=== PATIENT | female | born 1995 | race African-American/Black ===

== ENCOUNTER 2018-01-28 15:19 | Emergency (ER) | payer SELFPAY ==
[~2018-01-28] VITALS: Ht 172.7 cm; Wt 51.0 kg
[2018-01-28] MEDS ORDERED: LACTATED RINGERS 500 ML IV SCH (16:15)
[2018-01-28] MEDS ORDERED: BACITRACIN ZINC OINT UDPKT TOP ONE (16:30)
[2018-01-28 16:44] LABS: BASOPHILS % 0.2 % (0.0-2.0); HEMATOCRIT. 34.9 % (36.0-48.0); HEMOGLOBIN. 11.8 g/dL (12.0-16.0); LYMPHOCYTES % 23.6 % (20.0-50.0); MEAN CORPUSCULAR HEMOGLOBIN 32.2 pg (28.0-32.0); MEAN CORPUSCULAR VOLUME 95.6 fL (81.0-99.0); MEAN PLATELET VOLUME 8.6 fl (7.4-10.4); MONOCYTES % 7.5 % (2.0-8.0); NEUTROPHILS % 67.7 % (40.0-76.0); PLATELET 159 x1000/uL (130-400); RED BLOOD CELL COUNT 3.66 mill/uL (4.2-5.4); RED CELL DISTRIBUTION WIDTH 12.4 % (11.6-14.6)
[2018-01-28 16:46] LABS: CHLORIDE 110 mEq/L (98-107)
[2018-01-28 16:48] LABS: INR 1.1
[2018-01-28 17:20] LABS: CLARITY URINE CLEAR (CLEAR); COLOR URINE YELLOW (YELLOW); KETONES URINE NEGATIVE (NEGATIVE); LEUKOCYTE ESTERASE URINE NEGATIVE (NEGATIVE); NITRITE URINE NEGATIVE (NEGATIVE); OCCULT BLOOD URINE 1+ (NEGATIVE); PROTEIN URINE NEGATIVE (NEGATIVE); SPECIFIC GRAVITY URINE 1.012 (1.005-1.030)
[2018-01-28 18:07] VITALS: BP 132/76
== END 2018-01-28 18:08 | disposition home or self-care (01) ==
LOC: ER 15:30
DX: T23.091A Burn of unspecified degree of multiple sites of right wrist and hand, initial encounter (principal); T24.012A Burn of unspecified degree of left thigh, initial encounter; T31.0 Burns involving less than 10% of body surface; F17.200 Nicotine dependence, unspecified, uncomplicated; X10.2XXA Contact with fats and cooking oils, initial encounter; Y93.89 Activity, other specified; Y92.89 Other specified places as the place of occurrence of the external cause; Y99.8 Other external cause status
CPT/HCPCS: 16020; 36415; 80053; 81003; 85025; 85610; 99284; J7030; J7120; Z7610